=== PATIENT | female | born 1970 | race African-American/Black ===

== ENCOUNTER → 2024-09-25 | Day surgery (SDC) | payer BC, OTHER ==
[~2024-09-25] MED LIST: CYMBALTA30 MG PO; ELMIRON100 MG PO; FENTANYL CITRATE/PF 100MCG/2 ML INJ ONE; LIDOCAINE HCL 2% LOCAL INJ 5 ML SDV VIAL INJ ONE; ONDANSETRON HCL INJ 2MG/ML 2ML 2 MG/ML VIAL ONE; PROPOFOL IV EMULSION 10 MG/ML 20 ML VIAL ONE; PROPOFOL IV EMULSION 50 ML IV ONE; TRANEXAMIC ACID PO; VESICARE5 MG PO; VITAMIN D; WEGOVY0.5 MG/0.5
[2024-09-25] MEDS: LACTATED RINGER'S 1,000 ML ONE (09:22)
[2024-09-25 11:28] VITALS: TEMP 97
[2024-09-25 11:55] VITALS: BP 132/93; PULSE 59; RESP 16; O2SAT 100
== END | disposition home or self-care (01) ==
LOC: OR 08:55
PROVIDERS: ATTEND Internal Medicine Gastroenterology
DX: I85.00 Esophageal varices without bleeding (principal); K63.5 Polyp of colon; K29.70 Gastritis, unspecified, without bleeding; K31.89 Other diseases of stomach and duodenum; K20.90 Esophagitis, unspecified without bleeding; K44.9 Diaphragmatic hernia without obstruction or gangrene; K58.9 Irritable bowel syndrome, unspecified; K57.30 Diverticulosis of large intestine without perforation or abscess without bleeding; K64.8 Other hemorrhoids; Z01.810 Encounter for preprocedural cardiovascular examination; Z79.85 Long-term (current) use of injectable non-insulin antidiabetic drugs; Z80.0 Family history of malignant neoplasm of digestive organs
CPT/HCPCS: 43239; 45380; 45385; 81025; 93005; J2003; J2405; J2470; J2704 ×2; J3010; J7121; 45378